=== PATIENT | female | born 1960 | race Caucasian/White ===

== ENCOUNTER 2023-07-16 10:42 | Day surgery (SDC) | payer OTHER ==
[2023-07-12 09:41] VITALS: BMI 24.3
[2023-07-16] MEDS ORDERED: MIDAZOLAM HCL 2 MG/2 ML SINGLE DOSE VIAL ONE ×2 (10:52→11:50)
[2023-07-16] MEDS ORDERED: PROPOFOL 20 ML ONE ×2 (10:52→12:20)
[2023-07-16] MEDS ORDERED: ROCURONIUM BROMIDE 50 MG/5 ML SYRINGE ONE (10:53)
[2023-07-16] MEDS ORDERED: SUCCINYLCHOLINE CHLORIDE 200 MG/10 ML SYRINGE ONE (10:53)
[2023-07-16] MEDS ORDERED: ceFAZolin SODIUM 1 GM VIAL ONE (12:15)
[2023-07-16] MEDS ORDERED: ONDANSETRON 4 MG/2 ML VIAL ONE (12:15)
[2023-07-16] MEDS ORDERED: DEXAMETHASONE SOD PHOSPHATE 4 MG/1 ML VIAL ONE (12:15)
[2023-07-16 13:46] VITALS: RESP 18; TEMP 97.2
[2023-07-16 14:45] VITALS: BP 118/59; PULSE 78
== END 2023-07-16 14:59 | disposition home or self-care (01) ==
LOC: FASU 10:42
PROVIDERS: ATTEND Plastic Surgery
PROC: 0HX5XZZ Transfer Chest Skin, External Approach (ICD-10-PCS; 2023-07-16)
PROC: 0HX5XZZ Transfer Chest Skin, External Approach (ICD-10-PCS; principal; 2023-07-16 12:05)
DX: N65.0 Deformity of reconstructed breast (principal); Z85.3 Personal history of malignant neoplasm of breast; Z90.13 Acquired absence of bilateral breasts and nipples
CPT/HCPCS: 88305-TC

== ENCOUNTER 2023-11-07 07:29 | Day surgery (SDC) | payer OTHER ==
[2023-11-05 09:22] VITALS: BMI 25.1
[2023-11-07] MEDS ORDERED: PROPOFOL 40 ML ONE (07:40)
[2023-11-07] MEDS ORDERED: SUCCINYLCHOLINE CHLORIDE 200 MG/10 ML SYRINGE ONE (07:40)
[2023-11-07] MEDS ORDERED: PROPOFOL 20 ML ONE ×2 (07:42→10:28)
[2023-11-07] MEDS ORDERED: BUPIVACAINE HCL/EPINEPHRINE/PF 30 ML VIAL IJ ONE (07:42)
[2023-11-07 07:50] VITALS: RESP 16
[2023-11-07] MEDS ORDERED: MIDAZOLAM HCL 2 MG/2 ML SINGLE DOSE VIAL ONE (08:15)
[2023-11-07] MEDS ORDERED: FENTANYL CITRATE/PF 50 MCG/ML VIAL ONE ×3 (08:15→11:53)
[2023-11-07] MEDS ORDERED: ACETAMINOPHEN INJECTION 100 ML IVPB ONE (08:15)
[2023-11-07] MEDS ORDERED: EPINEPHrine/PF 1 MG/1 ML (1:1,000) AMPULE ONE (08:29)
[2023-11-07] MEDS ORDERED: SODIUM BICARBONATE 8.4% 50 MEQ/50 ML VIAL ONE (08:30)
[2023-11-07] MEDS ORDERED: LIDOCAINE HCL 2% (20ML MULTI-DOSE VIAL) ONE (08:30)
[2023-11-07] MEDS ORDERED: HYDROmorphone HCL/PF 1 MG/ML VIAL ONE (08:56)
[2023-11-07] MEDS: BUPIVACAINE 0.25% /EPI 1:200,000 10 ML VIAL INF ONE (09:19)
[2023-11-07] MEDS ORDERED: oxyCODONE HCL 5 MG TABLET PO PRN ×2 (11:12)
[2023-11-07] MEDS ORDERED: LACTATED RINGERS SOLUTION 1,000 ML IV SCH (11:15)
[2023-11-07] MEDS: ONDANSETRON 4 MG/2 ML VIAL IVPUSH PRN (11:42)
[2023-11-07 14:09] VITALS: PULSE 72
[2023-11-07 14:46] VITALS: TEMP 96.8
[2023-11-07 16:14] VITALS: BP 120/56
== END 2023-11-07 15:20 | disposition home or self-care (01) ==
LOC: FASU 07:29
PROVIDERS: ATTEND Plastic Surgery
PROC: 0HBJXZZ Excision of Left Upper Leg Skin, External Approach (ICD-10-PCS; 2023-11-07)
PROC: 0HBHXZZ Excision of Right Upper Leg Skin, External Approach (ICD-10-PCS; 2023-11-07)
PROC: 0HRV37Z Replacement of Bilateral Breast with Autologous Tissue Substitute, Percutaneous Approach (ICD-10-PCS; principal; 2023-11-07 09:19)
DX: Z90.13 Acquired absence of bilateral breasts and nipples (principal); N65.0 Deformity of reconstructed breast; L91.0 Hypertrophic scar
CPT/HCPCS: 88304-TC; 94760; J0131